=== PATIENT | male | born 2005 | race Caucasian/White ===

== ENCOUNTER 2023-03-02 16:48 | Outpatient (CLI) | payer SELFPAY | END 2023-03-02 16:49 | disposition home or self-care (01) | LOC: AMB 03-19 01:18 | PROVIDERS: Visit Provider Family Medicine | DX: S39.92XA Unspecified injury of lower back, initial encounter (principal); V48.1XXA Car passenger injured in noncollision transport accident in nontraffic accident, initial encounter; Y92.488 Other paved roadways as the place of occurrence of the external cause | CPT/HCPCS: A0425; A0427 ==

== ENCOUNTER 2023-03-02 17:07 | Emergency (ER) | payer SELFPAY ==
[2023-03-02] VITALS (27 sets, daily range): BP systolic 85–135; BP diastolic 50–78; PULSE 73–117; RESP 18; TEMP 36.7; O2SAT 95–100; BMI 19.5
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
[2023-03-02 17:47] LABS: Basophils Absolute Auto 0.04 K/uL (0.00-0.30); Basophils Percent Auto 0.6 % (0.0-3.0); Eosinophils Absolute Auto 0.39 K/uL (0.00-0.50); Eosinophils Percent Auto 5.7 % (0.0-7.0); Hematocrit 42.7 % (37.0-53.0); Hemoglobin* 14.6 gm/dL (13.5-17.5); Immature Granulocytes Abs Auto 0.09 K/uL (0.00-0.30); Immature Granulocytes Pct Auto 1.3 %; Lymphocytes Absolute Auto 1.52 K/uL (0.90-2.90); Lymphocytes Percent Auto 22.1 % (20-44); Mean Corpuscular HGB Conc 34 gm/dL (32-36); Mean Corpuscular Hemoglobin 31 pg (26-34); Mean Corpuscular Volume 92 fL (80-100); Monocytes Percent Auto 5.7 % (0.0-11.0); Neutrophils Absolute Auto 4.45 K/uL (1.7-7.0); Neutrophils Percent Auto 64.6 % (42.0-72.0); Platelet Count* 263 K/uL (140-440); RDW Coefficient of Variation % 11.9 % (11.5-15.5); Red Blood Count 4.66 m/uL (4.30-5.90); White Blood Count* 6.88 K/uL (4.50-11.00)
[2023-03-02 17:52] LABS: Slide Review Reflex No
[2023-03-02] MEDS: 0.9 % SODIUM CHLORIDE 1000 ml 1,000 ML IV (18:13)
[2023-03-02 18:14] LABS: Albumin* 4.4 g/dL (3.3-5.0); Chloride* 104 mmol/L (96-114); Potassium* 3.7 mmol/L (3.6-5.1); Sodium* 138 mmol/L (135-149)
[2023-03-02 18:16] LABS: Creatinine* 0.8 mg/dL (0.6-1.2); Estimated Glomerular Filt Rate 131 ml/min
[2023-03-02 18:17] LABS: Alanine Aminotransferase* 37 U/L (4-50); Alkaline Phosphatase* 75 U/L (65-260); Aspartate Amino Transferase* 43 U/L (12-35); Bilirubin Direct* 0.1 mg/dL (0.0-0.5); Bilirubin Total* 0.4 mg/dL (0.1-1.5); Blood Urea Nitrogen* 15 mg/dL (5-24); Calcium* 8.6 mg/dL (8.7-10.8); Carbon Dioxide* 29 mmol/L (20-32); Glucose* 114 mg/dL (60-115); Total Protein* 7.2 g/dL (6.0-8.3)
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
[2023-03-02] MEDS: MORPHINE 4 MG/ML INJ IVP (19:41)
--- NOTE | 2023-03-02 20:33 | ED.NURSE ---
[facility] in route for transport.
[2023-03-02] MEDS: HYDROmorphone 0.5 mg/0.5 ml inj IVP (21:05)
--- NOTE | 2023-03-02 21:05 | ED.NURSE ---
Transport arrives for patient. Mother provided with address for [facility]. She will be taking his clothing home.
--- NOTE | 2023-03-02 21:15 | ED.NURSE ---
Attempted to call for report to [facility]. Phone number provided. They will return call for report when available.
--- NOTE | 2023-03-02 21:16 | ED.NURSE ---
Patient transported to [facility] ED via ALS ambulance at 5. Patient stable at time of transport. Patient sent with face sheet, PCS form, ED transfer report, nursing note, MD note, labs and imaging. Imaging also pushed to [facility].
== END 2023-03-02 21:20 | disposition other institution (70) ==
PROVIDERS: Emergency Provider Emergency Medicine
DX: S32.010A Wedge compression fracture of first lumbar vertebra, initial encounter for closed fracture (principal); S22.081A Stable burst fracture of T11-T12 vertebra, initial encounter for closed fracture; V46.1XXA Car passenger injured in collision with other nonmotor vehicle in nontraffic accident, initial encounter
CPT/HCPCS: 36415; 71045; 72125; 72131; 74177; 80048; 80076; 85025; 99284; 99285; 99291; G0390; J1170; J2270; J7030; Q9967